=== PATIENT | male | born 2000 | race Caucasian/White ===

== ENCOUNTER 2020-12-05 20:43 | Emergency (ER) | payer BC ==
[~2020-12-05] VITALS: Ht 170.1 cm; Wt 70.3 kg
[~2020-12-05 20:43] MED LIST: AMOXIL250 M1 PO; KEFLEX500 MG PO; LOTRIMIN1% TP; LOTRISONE 0.05%1 CRE TP; MEDROL DOSEPAK4 MG PO; NKHM; PREDNISONE20 MG PO; TYLENOL W/CODEI1 TA2 PO; VENTOLIN H0.09 MG/AC INH; ZITHROMAX250 MG PO; ZYRTEC10 MG PO
[2020-12-05] MEDS ORDERED: MEDROL DOSEPAK4 MG PO (22:44)
[2020-12-05] MEDS ORDERED: BENADRYL ALLERG25 M5 PO (22:44)
== END 2020-12-05 23:55 | disposition home or self-care (01) ==
LOC: ED 20:43
DX: T78.40XA Allergy, unspecified, initial encounter (principal); L50.9 Urticaria, unspecified; J45.909 Unspecified asthma, uncomplicated; Z79.899 Other long term (current) drug therapy; X58.XXXA Exposure to other specified factors, initial encounter

== ENCOUNTER 2020-12-06 21:33 | Emergency (ER) | payer BC ==
[~2020-12-06] VITALS: Ht 170.2 cm; Wt 71.2 kg
[~2020-12-06 21:33] MED LIST changes: +BENADRYL ALLERG25 M5 PO
== END 2020-12-06 23:30 | disposition left against medical advice (07) ==
LOC: ED 21:33
DX: Z00.8 Encounter for other general examination (principal); Z53.21 Procedure and treatment not carried out due to patient leaving prior to being seen by health care provider